=== PATIENT | female | born 1990 | race Caucasian/White ===

== ENCOUNTER 2017-02-02 13:12 | Emergency (ER) | payer OTHER ==
[~2017-02-02] VITALS: Ht 152.4 cm; Wt 86.0 kg
[~2017-02-02 13:12] MED LIST: Z.0.NO CURRENT MEDS
[2017-02-02 13:13] VITALS: BP 142/82; PULSE 82; RESP 16; TEMP 98.7; O2SAT 98
[2017-02-02] MEDS ORDERED: ZOFR4TAB3 SL (14:43)
--- NOTE | 2017-02-02 14:44 | PD ---
HPI Chief Complaint: GI Complaint Time Seen by Provider: 14:26 Travel History International Travel<30 days: No Contact w/Intl Traveler<30days: No Traveled to known affect area: No History of Present Illness HPI 36-year-old female complains earache, dizziness, nausea and diarrhea. Patient was seen at local urgent care about 2 weeks ago and was given prescription for Bactrim DS for UTI. Patient was told that she had fluid behind the right ear also. Patient states that the urinary symptoms got better however patient started having diarrhea, dizziness, nausea since yesterday. Patient denies any headache. Patient denies any visual change. Patient denies any neck pain. Patient denies any chest pain or shortness of breath. Patient denies abdominal pain. Patient denies any dysuria or frequency. Patient denies any back pain. Patient denies any fever chills. Patient is on her menstruation period now. PFSH Past Medical History Developmental Delay: No Diminished Hearing: No Immunizations Current: Yes ?: Not LMP: 01/30/17 Past Surgical History Tonsillectomy: Yes (ADNOIDS X 3 YRS AGO) Social History Alcohol Use: No Tobacco Use: No Substance Use: No Allergies-Medications (Allergen,Severity, Reaction): Coded Allergies: penicillin G (Verified Allergy, Severe, Hives, 02/02/17) amoxicillin (Unverified Allergy, Mild, RASH, 02/02/17) Reported Meds & Prescriptions Reported Meds & Active Scripts Active No Active Prescriptions or Reported Medications Review of Systems General / Constitutional: No: Fever Eyes: No: Visual changes HENT: Positive: Lightheadedness, Earache, No: Headaches Cardiovascular: No: Chest Pain or Discomfort Respiratory: No: Shortness of Breath Gastrointestinal: No: Abdominal Pain Genitourinary: No: Dysuria Musculoskeletal: No: Pain Skin: No Rash Neurologic: No: Weakness Psychiatric: No: Depression Endocrine: No: Polydipsia Hematologic/Lymphatic: No: Easy Bruising Physical Exam Narrative GENERAL: Well-nourished, well-developed patient. SKIN: Focused skin assessment warm/dry. HEAD: Normocephalic. EYES: No scleral icterus. No injection or drainage. TM: Clear. Throat: Nonerythematous. NECK: Supple, trachea midline. No JVD. Patient has mild anterior cervical lymphadenopathy. No meningismus CARDIOVASCULAR: Regular rate and rhythm without murmurs, gallops, or rubs. RESPIRATORY: Breath sounds equal bilaterally. No accessory muscle use. GASTROINTESTINAL: Abdomen soft, non-tender, nondistended. MUSCULOSKELETAL: No cyanosis, or edema. BACK: Nontender without obvious deformity. No CVA tenderness. Neurologic exam normal. Data Data Last Documented VS Vital Signs Date Time Temp Pulse Resp B/P (MAP) Pulse Ox O2 Delivery O2 Flow Rate FiO2 02/02/17 13:13 98.7 82 16 142/82 (102) 98 MDM Medical Decision Making Medical Screen Exam Complete: Yes Emergency Medical Condition: Yes Differential Diagnosis Differential diagnosis including viral syndrome, otitis media, gastroenteritis. Narrative Course 26-year-old female complains of diarrhea, nausea, dizziness and earache. Diagnosis Primary Impression: Viral syndrome Patient Instructions: General Instructions Additional Instructions: Clear fluids today and advance diet as directed. Zofran as needed for nausea vomiting. [id number] Imodium for diarrhea. Follow-up with personal physician. Return if worse. Med/Other Pt SpecificInfo: Prescription(s) given Scripts Ondansetron Odt (Zofran Odt) 4 Mg Tab 4 MG SL Q6HR Y for Nausea/Vomiting, #10 TAB 0 Refills Prov: Moise Mendoza MD 02/02/17 Disposition: 01 DISCHARGE HOME Condition: Stable Moise Mendoza MD Feb 02, 2017 14:44
[2017-02-02 15:23] LABS: BACTERIA, URINE RARE /hpf; BILIRUBIN, URINE NEG (NEG); BLOOD, URINE LARGE (NEG); GLUCOSE,URINE NEG (NEG); KETONE, URINE NEG (NEG); NITRITE,URINE NEG (NEG); PH, URINE 6.5 (5.0-8.5); SQUAMOUS EPITHELIAL CELL URINE 1 /hpf (0-5); URINE COLOR LIGHT-YELLOW (YELLW/STRAW); URINE LEUKOCYTE ESTERASE NEG (NEG)
== END 2017-02-02 15:07 | disposition home or self-care (01) ==
LOC: NEPD 13:12
DX: B34.9 Viral infection, unspecified (principal); Z88.0 Allergy status to penicillin
CPT/HCPCS: 81001; 99283